=== PATIENT | male | born 1995 | race Hispanic/Latino ===

== ENCOUNTER 2022-10-24 06:21 | Emergency (ER) | payer SELFPAY ==
[2022-10-24] MEDS ORDERED: Ibuprofen 200 MG TAB ONE (08:05)
[2022-10-24] MEDS ORDERED: Acetaminophen 500 MG TAB ONE (08:05)
== END 2022-10-24 09:49 | disposition home or self-care (01) ==
LOC: ERS 06:21 → EDBD 06:21 → ERS 09:49
DX: J06.9 Acute upper respiratory infection, unspecified (principal); F17.210 Nicotine dependence, cigarettes, uncomplicated
CPT/HCPCS: 87804; 99283